=== PATIENT | female | born 1980 | race Caucasian/White ===

== ENCOUNTER 2018-06-02 11:20 | Day surgery (SDC) | END 2018-06-02 15:17 | disposition home or self-care (01) ==

== ENCOUNTER 2018-09-16 10:13 | Observation (INO) | payer OTHER ==
[2018-09-14 17:10] VITALS: BMI 29.8
[~2018-09-16] VITALS: Ht 170.2 cm; Wt 88.9 kg
[2018-09-16] VITALS (18 sets, daily range): BP systolic 94–111; BP diastolic 55–71; PULSE 50–82; RESP 13–28; Ht 170.2 cm; Wt 88.9 kg
[~2018-09-16 10:13] MED LIST: INHALER; OMEPRAZOLE; PEPCID
[2018-09-16] MEDS ORDERED: OMEP20CA16 PO (10:53)
--- NOTE | 2018-09-16 13:14 | HPN ---
Date/Time of Note Date/Time of Note DATE: 09/16/18 TIME: 13:14 Interval H&P Admission Note Pt. seen H&P reviewed: No system changes MARIEL ADAMS MD Sep 16, 2018 13:14
--- NOTE | 2018-09-16 13:26 | PREAC ---
Date/Time of Note Date/Time of Note DATE: 09/16/18 TIME: 13:24 Anesthesia Eval and Record Evaluation Time Pre-Procedure Interview DATE: 09/16/18 TIME: 13:24 Age 38 Sex female NPO: 8 hrs Preoperative diagnosis Pelvic mass Planned procedure Laparoscopic removal of pelvic mass Past Medical History Past Medical History: Includes Pulm: Asthma GI: GERD, Morbid obesity Surgery & Anesthesia Issues No known issue Meds Anticoagulation: No Beta Georgina within 24 hr: No Reason Beta Georgina not given: Pt. not on B-Georgina Reported Medications Omeprazole* (Omeprazole*) 20 Mg Capsule., 20 MG PO DAILY, #30 CAP 09/16/18 Discontinued Reported Medications [Inhaler] No Conflict Check 06/02/18 [Pepcid] No Conflict Check 06/02/18 [Omeprazole] No Conflict Check 06/02/18 Meds reviewed: Yes Allergies Coded Allergies: ibuprofen (Verified Allergy, Unknown, RASHES HIVES, 09/16/18) morphine (Verified Allergy, Unknown, N/V RASHES, 09/16/18) Allergies Reviewed: Yes Labs/Studies Labs Reviewed: Reviewed by anesthesiologist test: Negative Studies: ECG Pre-procedure Exam Last vitals Vital Signs Date Temp Pulse Resp B/P (MAP) Pulse Ox O2 O2 Flow FiO2 Time Delivery Rate 09/16/18 98.0 65 18 106/62 100 Room Air 10:55 (77) Airway: Adequate mouth opening, Adequate thyromental dist Mallampati: Mallampati II Teeth: Normal Lung: Normal Heart: Normal ASA Physical Status ASA physical status: 2 Emergency: None Planned Anesthetic General/MAC: ETT Planned Pain Management Parenteral pain med Pre-operative Attestations Prior to commencing anesthesia and surgery, the patient was re-evaluated, there was verification of: *The patient's identity *The results of appropriate recent lab work and preoperative vital signs *The above evaluation not changing prior to induction *Anesthetic plan, risk benefits, alternative and complications discussed with patient/family; questions answered; patient/family understands, accepts and wishes to proceed. ENDY POP MD Sep 16, 2018 13:26
[2018-09-16] MEDS ORDERED: BUPIVACAINE 0.5%/EPI (SDV) 30 ML INJ ONE (13:27)
[2018-09-16] MEDS ORDERED: MIDAZOLAM 1 MG/ML 2 ML INJ ONE (13:30)
[2018-09-16] MEDS ORDERED: ROCURONIUM 50 MG INJ ONE (14:59)
[2018-09-16] MEDS ORDERED: CEFAZOLIN 1 GM INJ ONE (14:59)
[2018-09-16] MEDS ORDERED: PROPOFOL 20 ML ONE (14:59)
[2018-09-16] MEDS ORDERED: ONDANSETRON 4 MG INJ ONE (14:59)
[2018-09-16] MEDS ORDERED: GLYCOPYRROLATE 0.4 MG INJ ONE (14:59)
[2018-09-16] MEDS ORDERED: LIDOCAINE 2% (SDV) 5 ML INJ ONE (14:59)
[2018-09-16] MEDS ORDERED: NEOSTIGMINE 3 MG/3 ML SYRINGE ONE (14:59)
[2018-09-16] MEDS ORDERED: ACETAMINOPHEN 325 MG TAB PO PRN (15:00)
--- NOTE | 2018-09-16 15:04 | OPR ---
Date/Time of Note Date/Time of Note DATE: 09/16/18 TIME: 15:01 Operative Report Procedure Date: Sep 16, 2018 Preoperative Diagnosis pelvic mass, menorrhagia Postoperative Diagnosis Right ovarian cyst and right hematosalpinx, endometrial polyp Operation/Procedure Performed LSC resectionof 10 cm pelvic mass, RSO, Hysteroscopy with D&C Surgeon see signature line [facility] Jennings Anesthesia Type: general Anesthesiologist: ENDY POP MD Estimated Blood Loss: 50 - 100 ml's Transfusion none Specimen Right tube and ovary. endometrial currettage Grafts/Implants none Complications none Pt Condition Post Procedure: stable Disposition: PACU Procedure Description LSC RSO, resection of pelvic mass, hysteroscopy, D&C MARIEL ADAMS MD Sep 16, 2018 15:04
--- NOTE | 2018-09-16 15:22 | PAC ---
Date/Time of Note Date/Time of Note DATE: 09/16/18 TIME: 15:21 Post-Anesthesia Notes Post-Anesthesia Note Last documented vital signs Vital Signs Date Temp Pulse Resp B/P (MAP) Pulse Ox O2 O2 Flow FiO2 Time Delivery Rate 09/16/18 98.0 65 18 106/62 100 Room Air 10:55 (77) Activity: WNL Respiratory function: WNL Cardiovascular function: WNL Mental status: Baseline Pain reasonably controlled: Yes Hydration appropriate: Yes Nausea/Vomiting absent: Yes Comments BP:112/67, P:78, spo2:100%, T:98,9 ENDY POP MD Sep 16, 2018 15:22
[2018-09-16] MEDS ORDERED: METOCLOPRAMIDE 10 MG INJ IV PRN (15:30)
[2018-09-16] MEDS ORDERED: DIPHENHYDRAMINE 50 MG INJ IV PRN (15:30)
[2018-09-16] MEDS ORDERED: ONDANSETRON 4 MG INJ IV PRN (15:30)
[2018-09-16] MEDS: FENTAnyl 50 MCG/ML VIAL IV PRN ×5 (15:33→16:35)
[2018-09-16] MEDS: LACTATED RINGER'S 1,000 ML IV SCH (15:49)
[2018-09-16] MEDS: HYDROCODONE/APAP (5/325) TAB PO PRN (17:59)
[2018-09-16] MEDS: HYDROmorphONE 0.5 MG/0.5 ML SYG IV PRN (22:19)
[2018-09-17] MEDS: HYDROCODONE/APAP (5/325) TAB PO PRN ×4 (00:01→21:50)
[2018-09-17 00:21] VITALS: BP 96/54; PULSE 76; RESP 18
[2018-09-17] MEDS: HYDROmorphONE 0.5 MG/0.5 ML SYG IV PRN ×5 (01:12→18:33)
[2018-09-17] MEDS: LACTATED RINGER'S 1,000 ML IV SCH ×2 (01:47→11:08)
[2018-09-17 07:48] VITALS: BP 96/51; PULSE 56
[2018-09-17] MEDS: ONDANSETRON 4 MG INJ IV PRN ×2 (14:13→19:34)
[2018-09-17 14:20] VITALS: BP 98/60; PULSE 58; RESP 18
--- NOTE | 2018-09-17 18:56 | PN ---
Date/Time of Note Date/Time of Note DATE: 09/17/18 TIME: 18:54 Assessment/Plan VTE Prophylaxis Risk score (from Ns)>0 risk: 3 SCD applied (from [facility] [place] SCD contraindicated: low risk/ambulating Pharmacological prophylaxis: other Pharm contraindication: low risk/ambulating Lines/Catheters IV Catheter Type (from [facility]): Peripheral IV Urinary Cath still in place: No Assessment/Plan Hospital Course POD #1 Assessment/Plan Advance diet, Heplock IV. D/C home tomorrow Result Diagram: 09/17/18 0442 09/17/18 0442 Results 24hrs Laboratory Tests Test 09/17/18 04:42 09/17/18 07:10 White Blood Count 7.6 Red Blood Count 4.11 L Hemoglobin 9.8 L Hematocrit 31.8 L Mean Corpuscular Volume 77.4 L Mean Corpuscular Hemoglobin 23.8 L Mean Corpuscular Hemoglobin Concent 30.8 L Red Cell Distribution Width 15.6 H Platelet Count 241 Mean Platelet Volume 10.1 Immature Granulocytes % 0.300 Neutrophils % 67.2 Lymphocytes % 26.0 Monocytes % 5.8 Eosinophils % 0.3 Basophils % 0.4 Nucleated Red Blood Cells % 0.0 Immature Granulocytes # 0.020 Neutrophils # 5.1 Lymphocytes # 2.0 Monocytes # 0.4 Eosinophils # 0.0 Basophils # 0.0 Nucleated Red Blood Cells # 0.0 Sodium Level 141 Potassium Level 4.4 Chloride Level 105 Carbon Dioxide Level 27 Anion Gap 9 Blood Urea Nitrogen 5 L Creatinine 0.51 Est Glomerular Filtrat Rate mL/min > 60 Glucose Level 82 Calcium Level 8.8 Lab Scanned Report REFERENCE LAB Subjective 24 Hr Interval Summary Free Text/Dictation Some nausea Exam/Review of Systems Exam Vitals Vital Signs Date Temp Pulse Resp B/P (MAP) Pulse Ox O2 O2 Flow FiO2 Time Delivery Rate 09/17/18 97.9 58 18 98/60 (73) 98 Room Air 14:20 09/16/18 3.0 16:37 Intake and Output 09/16/18 09/16/18 09/17/18 1515:00 23:00 07:00 IntakeIntake Total 1400 ml 1540 ml OutputOutput Total 1125 ml 750 ml BalanceBalance 275 ml 790 ml Gastrointestinal: soft Results Results 24hrs Laboratory Tests Test 09/17/18 04:42 09/17/18 07:10 White Blood Count 7.6 Red Blood Count 4.11 L Hemoglobin 9.8 L Hematocrit 31.8 L Mean Corpuscular Volume 77.4 L Mean Corpuscular Hemoglobin 23.8 L Mean Corpuscular Hemoglobin Concent 30.8 L Red Cell Distribution Width 15.6 H Platelet Count 241 Mean Platelet Volume 10.1 Immature Granulocytes % 0.300 Neutrophils % 67.2 Lymphocytes % 26.0 Monocytes % 5.8 Eosinophils % 0.3 Basophils % 0.4 Nucleated Red Blood Cells % 0.0 Immature Granulocytes # 0.020 Neutrophils # 5.1 Lymphocytes # 2.0 Monocytes # 0.4 Eosinophils # 0.0 Basophils # 0.0 Nucleated Red Blood Cells # 0.0 Sodium Level 141 Potassium Level 4.4 Chloride Level 105 Carbon Dioxide Level 27 Anion Gap 9 Blood Urea Nitrogen 5 L Creatinine 0.51 Est Glomerular Filtrat Rate mL/min > 60 Glucose Level 82 Calcium Level 8.8 Lab Scanned Report REFERENCE LAB Medications Medication Current Medications Lactated Ringer's 1,000 ml @ 100 mls/hr Q10H IV Last administered on 09/17/18 11:08; Admin Dose 100 MLS/HR; Start 09/16/18 at 14:57 Acetaminophen (Tylenol Tab) 650 mg Q4H PRN PO PAIN LEVEL 1-5; Start 09/16/18 at 15:00 Acetaminophen/ Hydrocodone Bitart ([place] (5/325)) 1 tab Q4H PRN PO PAIN LEVEL 6-10 Last administered on 09/17/18 11:08; Admin Dose 1 TAB; Start 09/16/18 at 15:00 Hydromorphone HCl (Dilaudid) 0.5 mg Q3H PRN IV SEVERE PAIN LEVEL 7-10 Last administered on 09/17/18 18:33; Admin Dose 0.5 MG; Start 09/16/18 at 15:30 Ondansetron HCl (Zofran Inj) 4 mg Q4H PRN IV NAUSEA AND/OR VOMITING Last administered on 09/17/18 14:13; Admin Dose 4 MG; Start 09/17/18 at 13:30 MARIEL ADAMS MD Sep 17, 2018 18:56
[2018-09-17 20:18] VITALS: BP 98/64; PULSE 52; RESP 18
[2018-09-18] MEDS: HYDROmorphONE 0.5 MG/0.5 ML SYG IV PRN ×4 (00:52→16:07)
[2018-09-18 02:00] VITALS: BP 95/51; RESP 17
[2018-09-18] MEDS: HYDROCODONE/APAP (5/325) TAB PO PRN ×2 (05:01→21:16)
[2018-09-18 08:35] VITALS: BP 111/52; PULSE 62; RESP 19
[2018-09-18] MEDS: ONDANSETRON 4 MG INJ IV PRN ×2 (11:53→16:09)
--- NOTE | 2018-09-18 12:58 | OPR ---
DATE OF OPERATION: 09/16/2018 PREOPERATIVE DIAGNOSIS: A 10 cm pelvic mass. There is also large hydrosalpinx. POSTOPERATIVE DIAGNOSIS: A 10 cm pelvic mass. There is also large hydrosalpinx. Pending final pathology. SURGEON: Halie Hebert MD ASSISTANTS: GRETTA Jennings and Mary Perdomo PA-C PROCEDURES: 1. Resection of 10 cm pelvic mass. 2. Laparoscopic right salpingo-oophorectomy. 3. Hysteroscopy with D and C. ANESTHESIA: General endotracheal. ANESTHESIOLOGIST: Rob Vences MD ESTIMATED BLOOD LOSS: Less 100 mL. INTRAOPERATIVE FINDINGS: The patient has a 10 cm complex right ovarian mass. Appearance is consistent with serous cystadenoma. There is also a large hematosalpinx on the right side. Left tube and ovary are completely normal. Endometrial cavity has multiple polyps and these were curetted. HISTORY OF PRESENT ILLNESS: This is a 38-year-old female who is 0. She has pelvic discomfort. MRI of the pelvis shows a 10 cm cystic mass. There was also a large hydrosalpinx. Her tumor markers including CA-125 and germ cell markers were within normal limits. The patient strongly desired future fertility. The patient also has irregular menstrual cycles. My plan is to remove the mass and possibly unilateral salpingo-oophorectomy and also perform a D and C hysteroscopy at the same time. DESCRIPTION OF PROCEDURE: With that in mind, the patient was appropriately counseled and consented and taken to the OR. She was placed in supine position, prepped and draped in usual sterile fashion. Desouza catheter was inserted by nursing staff. I started with the laparoscopy first. Supraumbilical trocar incision was made using 11-blade, 5 mm trocar was inserted. Pneumoperitoneum was established. The patient was placed in Trendelenburg position. Findings are noted as per above. Three other trocars were placed, 5 mm right lower quadrant, 5 mm left lower quadrant and suprapubically is 11 mm trocar. Findings are noted as per above. It became quite clear that these 2 masses all come from the right side. Fortunately, her left tube and ovary were completely normal. Pictures were taken. At this time, I then proceeded to separate the hematosalpinx from the ovary since these are quite large. I was able to take this down using LigaSure blunt tipped device and this was taken out without difficulty. Then, I looked at the right ovary. There is fibroma and the large cyst attached to the ovary. This is way too large and too complex to preserve the ovary. Therefore, I am going to do a right oophorectomy as well. At this time, the peritoneum above the round ligament was opened and ureter was dissected away. The IP ligament was isolated, cauterized and transected. At this time, the uteroovarian ligament was also isolated, cauterized and transected, thereby the right tube and ovary. Pictures were taken before and after. At this time, I placed the 15 mm trocar and a 15mm Endopouch was used to capture the tube and the large ovary separately. These are decompressing and exteriorized. These were removed intact without difficulty. Once this completed, I then proceeded to take picture of the pelvis. Her uterus is normal appearance. Left tube and ovary normal in appearance. At this time, I then closed the fascia for the suprapubic trocar using Endoclosure device with 0 Vicryl suture. Once that was closed, I went down below and I proceeded to dilate the cervix and I placed a 5 mm hysteroscope into the cervix. Findings are noted as per above. The patient does have multiple polyps and appeared to be fluffy tissue. The hysteroscope was withdrew and then I proceeded to curet the entire cavity from fundus down to lower uterine segment. Multiple passes were made and these will be all labeled as endometrial curetting. Once the hysteroscopy, D and C was completed, tenaculum was released. Tenaculum site was hemostatic and there is no active bleeding in the cervix. At this time, I was satisfied with the procedure. The trocar skin site was closed using Monocryl and Dermabond. At this time, the patient was cleansed, placed back in supine position, extubated and transferred to the recovery in stable condition. Dictated By: HALIE STAHL/STEVE Conf#: [id number] DID#: [id number]
[2018-09-18 14:25] VITALS: BP 101/62; PULSE 72; RESP 19
[2018-09-18 19:19] VITALS: BP 124/65; RESP 77
--- NOTE | 2018-09-18 19:24 | PN ---
Date/Time of Note Date/Time of Note DATE: 09/18/18 TIME: 19:22 Assessment/Plan VTE Prophylaxis Risk score (from Ns)>0 risk: 4 SCD applied (from [facility] [place]): Yes Pharmacological prophylaxis: NA/contraindicated, other Pharm contraindication: low risk/ambulating Lines/Catheters IV Catheter Type (from [facility]): [place] Urinary Cath still in place: No Assessment/Plan Hospital Course POD #2 Assessment/Plan Follow CBC, abdomen soft and non tender. Ambulate Result Diagram: 09/18/18 0437 09/18/18 0438 Results 24hrs Laboratory Tests Test 09/18/18 04:37 09/18/18 04:38 White Blood Count 5.3 # Red Blood Count 3.83 L Hemoglobin 9.2 L Hematocrit 30.1 L Mean Corpuscular Volume 78.6 L Mean Corpuscular Hemoglobin 24.0 L Mean Corpuscular Hemoglobin Concent 30.6 L Red Cell Distribution Width 15.9 H Platelet Count 210 Mean Platelet Volume 10.2 Immature Granulocytes % 0.200 Neutrophils % 52.0 Lymphocytes % 39.0 Monocytes % 6.9 Eosinophils % 1.3 Basophils % 0.6 Nucleated Red Blood Cells % 0.0 Immature Granulocytes # 0.010 Neutrophils # 2.8 Lymphocytes # 2.1 Monocytes # 0.4 Eosinophils # 0.1 Basophils # 0.0 Nucleated Red Blood Cells # 0.0 Sodium Level 139 Potassium Level 3.9 Chloride Level 105 Carbon Dioxide Level 28 Anion Gap 6 Blood Urea Nitrogen 5 L Creatinine 0.46 Est Glomerular Filtrat Rate mL/min > 60 Glucose Level 88 Calcium Level 8.7 Subjective 24 Hr Interval Summary Free Text/Dictation Emises x 2, Diarrhea. Exam/Review of Systems Exam Vitals Vital Signs Date Temp Pulse Resp B/P (MAP) Pulse Ox O2 O2 Flow FiO2 Time Delivery Rate 09/18/18 97.9 72 19 101/62 96 14:25 (75) 09/18/18 Room Air 02:00 09/16/18 3.0 16:37 Intake and Output 09/17/18 09/17/18 09/18/18 1515:00 23:00 07:00 IntakeIntake Total 800 ml 1750 ml 240 ml OutputOutput Total 600 ml 700 ml BalanceBalance 200 ml 1050 ml 240 ml Gastrointestinal: soft Results Results 24hrs Laboratory Tests Test 09/18/18 04:37 09/18/18 04:38 White Blood Count 5.3 # Red Blood Count 3.83 L Hemoglobin 9.2 L Hematocrit 30.1 L Mean Corpuscular Volume 78.6 L Mean Corpuscular Hemoglobin 24.0 L Mean Corpuscular Hemoglobin Concent 30.6 L Red Cell Distribution Width 15.9 H Platelet Count 210 Mean Platelet Volume 10.2 Immature Granulocytes % 0.200 Neutrophils % 52.0 Lymphocytes % 39.0 Monocytes % 6.9 Eosinophils % 1.3 Basophils % 0.6 Nucleated Red Blood Cells % 0.0 Immature Granulocytes # 0.010 Neutrophils # 2.8 Lymphocytes # 2.1 Monocytes # 0.4 Eosinophils # 0.1 Basophils # 0.0 Nucleated Red Blood Cells # 0.0 Sodium Level 139 Potassium Level 3.9 Chloride Level 105 Carbon Dioxide Level 28 Anion Gap 6 Blood Urea Nitrogen 5 L Creatinine 0.46 Est Glomerular Filtrat Rate mL/min > 60 Glucose Level 88 Calcium Level 8.7 Medications Medication Current Medications Acetaminophen (Tylenol Tab) 650 mg Q4H PRN PO PAIN LEVEL 1-5; Start 09/16/18 at 15:00 Acetaminophen/ Hydrocodone Bitart ([place] (5/325)) 1 tab Q4H PRN PO PAIN LEVEL 6-10 Last administered on 09/18/18at 05:01; Admin Dose 1 TAB; Start 09/16/18 at 15:00 Hydromorphone HCl (Dilaudid) 0.5 mg Q3H PRN IV SEVERE PAIN LEVEL 7-10 Last administered on 09/18/18at 16:07; Admin Dose 0.5 MG; Start 09/16/18 at 15:30 Ondansetron HCl (Zofran Inj) 4 mg Q4H PRN IV NAUSEA AND/OR VOMITING Last administered on 09/18/18at 16:09; Admin Dose 4 MG; Start 09/17/18 at 13:30 MARIEL ADAMS MD Sep 18, 2018 19:24
[2018-09-18 20:07] VITALS: BP 106/70; PULSE 64; RESP 18
[2018-09-19 00:10] VITALS: BP 101/62; PULSE 60; RESP 18
[2018-09-19] MEDS: HYDROmorphONE 0.5 MG/0.5 ML SYG IV PRN (04:55)
[2018-09-19 07:06] VITALS: BP 90/52; PULSE 57; RESP 14
--- NOTE | 2018-09-19 12:35 | PD.PPDC ---
BOBBIN SORTER Discharge Instruction Condition [id number] Patient Condition: Pyzag1c Good Diet [id number] Diet: Ibcag6o Resume Regular Diet Activity/Restrictions [id number] Activity: [id number] Normal Activity May Shower Wound/Drain Care Instructions [id number] Wound/Drain Care Instructions: [id number] Keep clean and dry Follow-up Follow-up with Physician: 2, Week/Weeks Return to clinic for [id number] MANAGER E LEARNING Instructions: [id number] Fever greater than 101 Worsening abdominal pain Excessive Vaginal Bleeding MARIEL ADAMS MD Sep 19, 2018 12:35
--- NOTE | 2018-09-19 12:40 | DS ---
Date/Time of Note Date/Time of Note DATE: 09/19/18 TIME: 12:37 Discharge Summary Admission/Discharge Info Admit Date/Time Sep 16, 2018 at 15:01 Discharge Date/Time 09-19-18 Discharge Diagnosis Ovarian mass and hematosalpinx Patient Condition: Good Procedures LSC RSO and resection of pelvic mass Hospital Course Tolerated procedure. Pain control issues. Resolved. Home Meds Reported Medications Omeprazole* (Omeprazole*) 20 Mg Capsule., 20 MG PO DAILY, #30 CAP 09/16/18 Discontinued Reported Medications [Inhaler] No Conflict Check 06/02/18 [Pepcid] No Conflict Check 06/02/18 [Omeprazole] No Conflict Check 06/02/18 Follow-up Plan See me in office in 2 weeks Primary Care Provider Not On Staff Doctor Pending Labs Laboratory Tests Test 09/19/18 04:52 White Blood Count 5.1 10^3/ul (4.8-10.8) Red Blood Count 4.20 10^6/ul (4.20-5.40) Hemoglobin 10.0 g/dl (12.0-16.0) Hematocrit 33.0 % (37.0-47.0) Mean Corpuscular Volume 78.6 fl (82.0-101.0) Mean Corpuscular Hemoglobin 23.8 pg (29.0-33.0) Mean Corpuscular Hemoglobin Concent 30.3 g/dl (32.0-37.0) Red Cell Distribution Width 15.7 % (11.5-14.5) Platelet Count 236 10^3/UL (140-415) Mean Platelet Volume 10.1 fl (7.4-10.4) Immature Granulocytes % 0.200 % (0.001-0.429) Neutrophils % 54.9 % (39.0-77.0) Lymphocytes % 36.4 % (15.0-51.0) Monocytes % 6.7 % (0.0-11.0) Eosinophils % 1.4 % (0.0-7.0) Basophils % 0.4 % (0.0-2.0) Nucleated Red Blood Cells % 0.0 /100WBC (0.0-0.0) Immature Granulocytes # 0.010 10^3/ul (0.0-0.031) Neutrophils # 2.8 10^3/ul (1.6-7.5) Lymphocytes # 1.9 10^3/ul (0.8-2.9) Monocytes # 0.3 10^3/ul (0.3-0.9) Eosinophils # 0.1 10^3/ul (0.0-0.5) Basophils # 0.0 10^3/ul (0.0-0.1) Nucleated Red Blood Cells # 0.0 10^3/ul (0.0-0.0) Sodium Level 140 mmol/L (135-144) Potassium Level 3.8 mmol/L (3.5-5.1) Chloride Level 106 mmol/L (97-110) Carbon Dioxide Level 27 mmol/L (21-31) Anion Gap 7 (5-13) Blood Urea Nitrogen 6 mg/dl (7-20) Creatinine 0.40 mg/dl (0.44-1.00) Est Glomerular Filtrat Rate mL/min > 60 mL/min (>60) Glucose Level 91 mg/dl (70-220) Calcium Level 8.8 mg/dl (8.4-10.2) MARIEL ADAMS MD Sep 19, 2018 12:39
[2018-09-19] MEDS: HYDROCODONE/APAP (5/325) TAB PO PRN (14:17)
== END 2018-09-19 14:55 | disposition home or self-care (01) ==
LOC: SDS 10:13 → REC 15:01 → SDS 15:01 → MS1 17:00
PROVIDERS: ADMIT Obstetrics & Gynecology Gynecologic Oncology; ATTEND Obstetrics & Gynecology Gynecologic Oncology
DX: N70.11 Chronic salpingitis (principal); D27.0 Benign neoplasm of right ovary; J45.909 Unspecified asthma, uncomplicated
CPT/HCPCS: 58558; 58661; 80048; 84703; 85025; 86850; 86900; 86901; 87086; 88305; J0690; J1170; J2250; J2405; J2710; J3010; J7120; Z7500; Z7512; Z7610; G0378

== ENCOUNTER 2018-10-05 10:17 | Day surgery (SDC) | payer OTHER ==
[2018-10-02 16:40] VITALS: BMI 29.8
[2018-10-05] VITALS (10 sets, daily range): BP systolic 96–131; BP diastolic 52–73; PULSE 56–62; RESP 16–26; Ht 167.6 cm; Wt 87.5 kg
[~2018-10-05] VITALS: Ht 167.6 cm; Wt 87.5 kg
[2018-10-05] MEDS ORDERED: CEFAZOLIN 2 GM/50 ML (PMX) 50 ML IVPB ONE (11:00)
[2018-10-05] MEDS ORDERED: SOD CHLORIDE 0.9% 1,000 ML IV SCH (11:00)
--- NOTE | 2018-10-05 13:07 | PREAC ---
Date/Time of Note Date/Time of Note DATE: 10/05/18 TIME: 13:07 Anesthesia Eval and Record Evaluation Time Pre-Procedure Interview DATE: 10/05/18 TIME: 13:07 Age 38 Sex female NPO: 8 hrs Preoperative diagnosis gallstones Planned procedure lap nicko Past Medical History Past Medical History: Includes Pulm: Asthma GI: Obesity Surgery & Anesthesia Issues No known issue Meds Anticoagulation: No Beta Georgina within 24 hr: No Reason Beta Georgina not given: Pt. not on B-Georgina No Active Prescriptions or Reported Meds Current Medications Sodium Chloride 1,000 ml @ 75 mls/hr [id number] IV ; Start 10/05/18 at 11:00; Stop 10/06/18 at 00:19 Influenza Virus Vaccine Quadrival (Fluzone) 0.5 ml ONCE ONCE IM* ; Start 10/06/18 at 09:00; Stop 10/06/18 at 09:01 Meds reviewed: Yes Allergies Coded Allergies: ibuprofen (Verified Allergy, Unknown, RASHES HIVES, 10/05/18) morphine (Verified Allergy, Unknown, N/V RASHES, 10/05/18) Allergies Reviewed: Yes Labs/Studies Labs Reviewed: Reviewed by anesthesiologist test: Negative Studies: ECG Pre-procedure Exam Last vitals Vital Signs Date Temp Pulse Resp B/P (MAP) Pulse Ox O2 O2 Flow FiO2 Time Delivery Rate 10/05/18 98.4 62 16 104/65 100 Room Air 12:34 (78) Airway: Adequate mouth opening, Adequate thyromental dist Mallampati: Mallampati II Teeth: Normal Lung: Normal Heart: Normal ASA Physical Status ASA physical status: 2 Emergency: None Planned Anesthetic General/MAC: ETT Nerve block: TAP (bilateral) Pre-operative Attestations Prior to commencing anesthesia and surgery, the patient was re-evaluated, there was verification of: *The patient's identity *The results of appropriate recent lab work and preoperative vital signs *The above evaluation not changing prior to induction *Anesthetic plan, risk benefits, alternative and complications discussed with patient/family; questions answered; patient/family understands, accepts and wishes to proceed. MARLON WIGGINS Oct 05, 2018 13:07
[2018-10-05] MEDS ORDERED: FENTAnyl 50 MCG/ML VIAL IV PRN ×3 (13:30)
[2018-10-05] MEDS ORDERED: LEVALBUTEROL (NEB) 0.63 MG/3 ML AMP HHN PRN (13:30)
[2018-10-05] MEDS ORDERED: ALBUTEROL 0.083% (NEB) 2.5 MG/3 ML AMP HHN PRN (13:30)
[2018-10-05] MEDS ORDERED: HYDROmorphONE 1 MG/5 ML IV SYRINGE IV PRN ×3 (13:30)
[2018-10-05] MEDS ORDERED: MEPERIDINE 25 MG INJ IV PRN (13:30)
[2018-10-05] MEDS ORDERED: METOCLOPRAMIDE 10 MG INJ IV PRN (13:30)
[2018-10-05] MEDS ORDERED: DIPHENHYDRAMINE 50 MG INJ IV PRN (13:30)
[2018-10-05] MEDS ORDERED: FENTAnyl 50 MCG/ML VIAL ONE (13:31)
[2018-10-05] MEDS ORDERED: ROPIVACAINE 0.5 % 30 ML VIAL ONE (13:31)
[2018-10-05] MEDS ORDERED: NEOSTIGMINE 10 MG INJ ONE (14:12)
[2018-10-05] MEDS ORDERED: GLYCOPYRROLATE 0.4 MG INJ ONE (14:12)
[2018-10-05] MEDS ORDERED: PROPOFOL 20 ML ONE (14:12)
[2018-10-05] MEDS ORDERED: CEFAZOLIN 1 GM INJ ONE (14:12)
[2018-10-05] MEDS ORDERED: ROCURONIUM 50 MG INJ ONE (14:12)
--- NOTE | 2018-10-05 14:15 | OPR ---
Date/Time of Note Date/Time of Note DATE: 10/05/18 TIME: 14:13 Operative Report Procedure Date: Oct 05, 2018 Preoperative Diagnosis symptomatic gallstones Postoperative Diagnosis same Operation/Procedure Performed laparoscopic cholecystectomy Surgeon see signature line Informatics Spec none Anesthesia Type: general Estimated Blood Loss: 10 - 50 ml's Transfusion none Specimen gallbladder Grafts/Implants none Complications none Pt Condition Post Procedure: stable Indications This is a 38-year-old female with symptomatic gallstones. She required surgical excision of her gallbladder. Risks alternatives benefits of percent were discussed the patient. Patient expressed understanding and consents to the operation. Procedure Description Patient taken to the OR and prepped and draped in usual sterile fashion. Surgical time was performed. IV antibiotics were given. Infraumbilical incision was made transversely with a 15 blade. Dissection with cautery was carried onto the fascia. The fascia was grasped with [place]'s and divided with curved Yu scissors. 0 Vicryl U stitches placed into the fascia. [place] trocar was introduced. Pneumoperitoneum was established. Midepigastric 12 mm optical trochars placed under direct visualization. Right upper quadrant upper flank 5 mm optical trochars placed under direct position. Upon initial inspection there are some adhesions to the gallbladder which were taken down bluntly. The gallbladder was grasped the fundus and retracted in a lateral cephalad direction. [place] graspers were used to dissect out the cystic duct and cystic artery. The critical view was established. The cystic duct is divided with 3 clips proximal to distal and the division was performed with lap scopic scissors. The cystic artery was divided with the clips proximally clipped distal and the cystic artery was divided laparoscopic scissors. The gallbladder was taken of the gallbladder bed. Good hemostasis established. The gallbladder is retrieved using Endo Catch bag. Ports removed under direct position. 0 Vicryl stitch was tied down. Skin is closed using skin christo. A tap block was provided by the anesthesiologist. Dry dressings were applied. Queta HOWELL Oct 05, 2018 14:15
[2018-10-05] MEDS ORDERED: traMADol 50 MG TAB PO ONE (14:30)
[2018-10-05] MEDS: ONDANSETRON 4 MG INJ IV PRN ×2 (14:32→16:31)
--- NOTE | 2018-10-05 22:18 | PAC ---
Date/Time of Note Date/Time of Note DATE: 10/05/18 TIME: 22:18 Post-Anesthesia Notes Post-Anesthesia Note Last documented vital signs Vital Signs Date Temp Pulse Resp B/P (MAP) Pulse Ox O2 O2 Flow FiO2 Time Delivery Rate 10/05/18 97.7 60 18 96/55 (69) 98 16:08 10/05/18 Room Air 15:00 Activity: WNL Respiratory function: WNL Cardiovascular function: WNL Mental status: Baseline Pain reasonably controlled: Yes Hydration appropriate: Yes Nausea/Vomiting absent: Yes MARLON WIGGINS Oct 05, 2018 22:18
[2018-10-06] MEDS ORDERED: INFLUENZA VIRUS VACCINE 0.5 ML (DISPENSING) IM* ONE (09:00)
== END 2018-10-05 16:27 | disposition home or self-care (01) ==
LOC: SDS 10:17
PROVIDERS: ATTEND Surgery
DX: K80.20 Calculus of gallbladder without cholecystitis without obstruction (principal)
CPT/HCPCS: 47562; J0690; J1170; J2405; J2710; J2795; J3010; Z7512; Z7610; 88304; 90686